=== PATIENT | female | born 1995 | race Caucasian/White ===

== ENCOUNTER 2016-04-29 13:12 | Emergency (ER) | payer OTHER ==
[~2016-04-29] VITALS: Wt 54.4 kg
[~2016-04-29 13:12] MED LIST: AMOXIL500 MG PO; ATARAX25 MG PO; BACTRIM DS 8001 TA1 PO; CIPRO500 MG PO; DIFLUCAN150 MG PO; ELIMITE 5%60 GM T; EMOQUETTE 0.151 TAB PO; FLEXERIL10 MG PO; FLONASE0.05 MG/AC NS; HYDROCODONE BIT1 T11 PO; MIRENA52 MG IU; MOTRIN800 MG PO; NAPROSYN500 MG PO; PREDNICOT20 MG PO; PRENATAL1 TA1 PO; PRENATAL1 TA7 PO; ROBITUSSIN AC 110 ML PO; SUDAFED60 MG PO; ZITHROMAX Z PA250 MG PO; ZITHROMAX250 MG PO; ZOFRAN ODT4 MG SL; ZYRTEC10 MG PO
[2016-04-29] MEDS ORDERED: PRENATAL1 TA3 PO (13:57)
[2016-04-29 14:02] LABS: BILIRUBIN NEGATIVE (NEGATIVE); BLOOD NEGATIVE (NEGATIVE); CLARITY CLOUDY (CLEAR); COLOR YELLOW (YELLOW); GLUCOSE NEGATIVE (NEGATIVE); KETONE TRACE (NEGATIVE); LEUKO ESTERASE 1+ (NEGATIVE); NITRITE NEGATIVE (NEGATIVE); PH 5.5 (5.0-9.0); PROTEIN NEGATIVE (NEGATIVE); SPECIFIC GRAVITY >= 1.030 (1.005-1.030); UROBILINOGEN 0.2 E.U./dl (0.2-1.0)
[2016-04-29 14:17] LABS: BACTERIA 3+; EPITHELIAL CELLS 20-30; MUCOUS 3+; URINE REFLEX COMMENT YES (NO); WBC 31-40 wbc/hpf (0-5)
[2016-04-29] MEDS ORDERED: MACROBID100 M1 PO (14:19)
== END 2016-04-29 14:24 | disposition home or self-care (01) ==
LOC: ED 13:12
PROVIDERS: Nurse Practitioner Family
DX: O23.41 Unspecified infection of urinary tract in pregnancy, first trimester (principal); F17.200 Nicotine dependence, unspecified, uncomplicated; Z3A.01 Less than 8 weeks gestation of pregnancy

== ENCOUNTER 2016-05-01 19:10 | Emergency (ER) | payer OTHER ==
[~2016-05-01] VITALS: Ht 160 cm; Wt 55.8 kg
[~2016-05-01 19:10] MED LIST changes: +MACROBID100 M1 PO; +PRENATAL1 TA3 PO
== END 2016-05-01 20:30 | disposition home or self-care (01) ==
LOC: ED 19:10
DX: O26.891 Other specified pregnancy related conditions, first trimester (principal); R10.9 Unspecified abdominal pain; F17.200 Nicotine dependence, unspecified, uncomplicated; Z79.899 Other long term (current) drug therapy; Z3A.01 Less than 8 weeks gestation of pregnancy

== ENCOUNTER → 2016-08-17 | Outpatient (CLI) | payer OTHER | END | disposition home or self-care (01) | LOC: US 14:00 | DX: Z34.82 Encounter for supervision of other normal pregnancy, second trimester (principal); Z3A.00 Weeks of gestation of pregnancy not specified ==

== ENCOUNTER 2016-09-21 18:14 | Emergency (ER) | payer OTHER ==
[~2016-09-21] VITALS: Ht 157.4 cm; Wt 56.2 kg
[2016-09-21 18:41] LABS: BILIRUBIN NEGATIVE (NEGATIVE); BLOOD NEGATIVE (NEGATIVE); CLARITY SL CLOUDY (CLEAR); COLOR YELLOW (YELLOW); GLUCOSE NEGATIVE (NEGATIVE); KETONE NEGATIVE (NEGATIVE); LEUKO ESTERASE 1+ (NEGATIVE); NITRITE NEGATIVE (NEGATIVE); PROTEIN NEGATIVE (NEGATIVE)
[2016-09-21 18:55] LABS: BASO % 0.3 % (0.0-1.0); EOS # 0.1 10*3/uL (0.0-0.4); EOS % 0.9 % (1.0-4.0); HEMATOCRIT 37.2 % (37.0-47.0); HEMOGLOBIN 12.5 g/dl (12.0-16.0); LYMPH # 2.5 10*3/uL (1.3-4.4); MEAN CELL VOLUME 90.7 fl (81.0-99.0); MEAN CORPUSCULAR HGB 30.5 pg (27.0-31.0); MEAN CORPUSCULAR HGB CONC 33.6 g/dl (33.0-37.0); MEAN PLATELET VOLUME 11.7 fl (9.6-12.3); MONO # 0.4 10*3/uL (0.1-1.0); MONO % 4.4 % (3.0-9.0); NEUT # 5.8 10*3/uL (2.3-7.9); NEUT % 65.9 % (47.0-73.0); PLATELET COUNT AUTOMATED 179 10*3/uL (130-400); RED CELL DISTRI WIDTH 13.5 % (0-14.5); WHITE BLOOD COUNT 8.8 10*3/uL (4.8-10.8)
[2016-09-21 19:00] LABS: BACTERIA 3+; URINE REFLEX COMMENT YES (NO)
[2016-09-21 19:12] LABS: ALBUMIN 3.2 gm/dl (3.1-4.5); ALKALINE PHOSPHATASE 66 U/L (45-117); BILIRUBIN, TOTAL 0.3 mg/dl (0.2-1.0); BUN 4 mg/dl (7-24); CARBON DIOXIDE 23 mmol/L (21-32); CHLORIDE 106 mmol/L (98-107); EST GLOM FILT AFRICAN AMERICAN > 60 ml/min; GLUCOSE 77 mg/dL (65-99); POTASSIUM 3.9 mmol/L (3.5-5.1); SGOT/AST 13 IU/L (3-35); SGPT/ALT 15 U/L (12-78); SODIUM 138 mmol/L (136-145)
[2016-09-21] MEDS ORDERED: MACROBID100 M1 PO (19:42)
== END 2016-09-21 20:33 | disposition home or self-care (01) ==
LOC: ED 18:14
PROVIDERS: Nurse Practitioner Family
DX: O23.42 Unspecified infection of urinary tract in pregnancy, second trimester (principal); F17.200 Nicotine dependence, unspecified, uncomplicated; Z79.899 Other long term (current) drug therapy; Z3A.25 25 weeks gestation of pregnancy

== ENCOUNTER 2017-11-07 00:18 | Emergency (ER) | payer OTHER ==
[~2017-11-07] VITALS: Wt 47.6 kg
[2017-11-07 00:36] LABS: BILIRUBIN NEGATIVE (NEGATIVE); BLOOD NEGATIVE (NEGATIVE); CLARITY CLEAR (CLEAR); COLOR YELLOW (YELLOW); GLUCOSE NEGATIVE (NEGATIVE); KETONE NEGATIVE (NEGATIVE); LEUKO ESTERASE TRACE (NEGATIVE); NITRITE NEGATIVE (NEGATIVE); PH 7.5 (5.0-9.0); UROBILINOGEN 0.2 E.U./dl (0.2-1.0)
[2017-11-07 00:42] LABS: BACTERIA TRACE; EPITHELIAL CELLS 15-20
== END 2017-11-07 01:50 | disposition home or self-care (01) ==
LOC: ED 00:18
PROVIDERS: Emergency Medicine
DX: N39.0 Urinary tract infection, site not specified (principal); R30.0 Dysuria; F17.200 Nicotine dependence, unspecified, uncomplicated; Z79.899 Other long term (current) drug therapy

== ENCOUNTER 2018-03-30 10:51 | Emergency (ER) | payer OTHER ==
[~2018-03-30] VITALS: Wt 46.7 kg
[2018-03-30] MEDS ORDERED: NAPROSYN500 MG PO (11:34)
[2018-03-30] MEDS ORDERED: AMOXICILLIN500 M2 PO (11:34)
== END 2018-03-30 12:00 | disposition home or self-care (01) ==
LOC: ED 10:51
DX: K02.9 Dental caries, unspecified (principal)

== ENCOUNTER 2018-04-02 20:41 | Emergency (ER) | payer OTHER ==
[~2018-04-02] VITALS: Ht 154.9 cm; Wt 46.7 kg
[~2018-04-02 20:41] MED LIST changes: +AMOXICILLIN500 M2 PO
[2018-04-02] MEDS ORDERED: CLINDAMYCIN HC300 MG PO (21:07)
== END 2018-04-02 21:18 | disposition home or self-care (01) ==
LOC: ED 20:41
DX: K04.7 Periapical abscess without sinus (principal); Z79.2 Long term (current) use of antibiotics; Z79.899 Other long term (current) drug therapy

== ENCOUNTER 2018-10-07 07:30 | Emergency (ER) | payer OTHER ==
[~2018-10-07] VITALS: Ht 154.9 cm; Wt 46.7 kg
[~2018-10-07 07:30] MED LIST changes: +CLINDAMYCIN HC300 MG PO
[2018-10-07] MEDS ORDERED: Motrin,Rufen800 MG PO (09:26)
== END 2018-10-07 09:36 | disposition home or self-care (01) ==
LOC: ED 07:30
DX: S43.401A Unspecified sprain of right shoulder joint, initial encounter (principal); Z79.2 Long term (current) use of antibiotics; Z79.899 Other long term (current) drug therapy; X50.0XXA Overexertion from strenuous movement or load, initial encounter; Y93.89 Activity, other specified; Y92.89 Other specified places as the place of occurrence of the external cause; Y99.8 Other external cause status

== ENCOUNTER 2018-11-23 11:43 | Emergency (ER) | payer OTHER ==
[~2018-11-23] VITALS: Wt 47.2 kg
--- NOTE | ~2018-11-23 | EKG ---
[place], [place] ELECTROCARDIOGRAM REPORT NAME: RILEY OLEA UNIT #: [id number] ROOM: DOCTOR: EPIPHANY DRAFT REPORT BIRTHDATE: [birth year] [facility] Test Date: 2018-11-23 Test Time: 12:09:08 Pat Name: RILEY OLEA Department: Room: Gender: F Heel Gummer: : 1995 Requested By: MAICOL LEIJA Order Number: [id number] Reading MD: Sheldon Goel MD Measurements Intervals [place] Rate: 67 P: 49 [place]: 162 QRS: 63 QRSD: 71 T: 34 QT: 384 QTc: 406 Interpretive Statements Sinus rhythm No previous ECG available for comparison Electronically Signed On 11-24-2018 5:37:41 PDT by Sheldon Goel MD CM:EKGRPT:ELECTROCARDIOGRAM REPORT [id number] MAICOL LEIJA EPIPHANY DRAFT REPORT MAICOL LEIJA
[~2018-11-23 11:43] MED LIST changes: +Motrin,Rufen800 MG PO
[2018-11-23 12:01] LABS: BASO % 0.8 % (0.0-1.0); EOS # 0.1 10*3/uL (0.0-0.4); EOS % 2.4 % (1.0-4.0); HEMATOCRIT 41.3 % (37.0-47.0); HEMOGLOBIN 13.8 g/dl (12.0-16.0); LYMPH # 1.9 10*3/uL (1.3-4.4); LYMPH % 38.1 % (27.0-41.0); MEAN CORPUSCULAR HGB 30.4 pg (27.0-31.0); MEAN CORPUSCULAR HGB CONC 33.4 g/dl (33.0-37.0); MEAN PLATELET VOLUME 10.8 fl (9.6-12.3); MONO # 0.3 10*3/uL (0.1-1.0); MONO % 6.5 % (3.0-9.0); NEUT # 2.6 10*3/uL (2.3-7.9); PLATELET COUNT AUTOMATED 219 10*3/uL (130-400); RED BLOOD COUNT 4.54 10*6/uL (4.10-5.10); RED CELL DISTRI WIDTH 11.9 % (0-14.5)
[2018-11-23 12:11] LABS: BILIRUBIN NEGATIVE (NEGATIVE); BLOOD NEGATIVE (NEGATIVE); CLARITY SL CLOUDY (CLEAR); COLOR YELLOW (YELLOW); GLUCOSE NEGATIVE (NEGATIVE); KETONE NEGATIVE (NEGATIVE); LEUKO ESTERASE NEGATIVE (NEGATIVE); NITRITE NEGATIVE (NEGATIVE); PH 5.5 (5.0-9.0); SPECIFIC GRAVITY 1.025 (1.005-1.030); UROBILINOGEN 0.2 E.U./dl (0.2-1.0)
[2018-11-23 12:16] LABS: URINE AMPHETAMINES < 1000 (1000ng/ml); URINE BARBITURATES < 200 (200ng/ml); URINE BENZODIAZEPINES < 200 (200ng/ml); URINE CANNABINOIDS (THC) < 50 (50ng/ml); URINE COCAINE < 300 (300ng/ml); URINE METHADONE < 300 (300ng/ml); URINE OPIATES < 300 (300ng/ml)
[2018-11-23 12:19] LABS: URINE PHENCYCLIDINE < 25 (25ng/ml)
[2018-11-23 12:20] LABS: ALBUMIN 3.9 gm/dl (3.1-4.5); ALKALINE PHOSPHATASE 47 U/L (45-117); BUN 14 mg/dl (7-24); CHLORIDE 108 mmol/L (98-107); CPK 52 U/L (26-192); CREATININE 0.65 mg/dL (0.55-1.02); POTASSIUM 4.3 mmol/L (3.5-5.1); SGOT/AST 10 IU/L (3-35); SGPT/ALT 15 U/L (12-78); SODIUM 141 mmol/L (136-145); TOTAL PROTEIN 6.8 gm/dL (6.4-8.2)
[2018-11-23 12:21] LABS: TROPONIN I < 0.015 ng/ml (<0.045)
[2018-11-23 12:40] LABS: BACTERIA 2+; MUCOUS 3+
[2018-11-23] MEDS ORDERED: Meclizine25 MG PO (14:12)
== END 2018-11-23 14:19 | disposition home or self-care (01) ==
LOC: ED 11:43
PROVIDERS: Nurse Practitioner Family
DX: R42 Dizziness and giddiness (principal); R55 Syncope and collapse

== ENCOUNTER 2019-06-27 14:52 | Emergency (ER) | payer OTHER ==
[~2019-06-27] VITALS: Ht 154.9 cm; Wt 47.2 kg
[~2019-06-27 14:52] MED LIST changes: +Meclizine25 MG PO
[2019-06-27] MEDS ORDERED: NAPROSYN500 MG PO (16:01)
[2019-06-27] MEDS ORDERED: CLINDAMYCIN HC300 MG PO (16:01)
== END 2019-06-27 16:48 | disposition home or self-care (01) ==
LOC: ED 14:52
DX: K08.89 Other specified disorders of teeth and supporting structures (principal); Z79.899 Other long term (current) drug therapy

== ENCOUNTER 2019-08-05 22:53 | Emergency (ER) | payer OTHER ==
[~2019-08-05] VITALS: Ht 154.9 cm; Wt 48.1 kg
[2019-08-06 00:02] LABS: BASO # 0.1 10*3/uL (0.0-0.1); BASO % 0.9 % (0.0-1.0); EOS # 0.2 10*3/uL (0.0-0.4); EOS % 3.3 % (1.0-4.0); HEMATOCRIT 39.3 % (37.0-47.0); LYMPH # 2.4 10*3/uL (1.3-4.4); LYMPH % 37.8 % (27.0-41.0); MEAN CELL VOLUME 89.1 fl (81.0-99.0); MEAN CORPUSCULAR HGB 29.9 pg (27.0-31.0); MEAN CORPUSCULAR HGB CONC 33.6 g/dl (33.0-37.0); MEAN PLATELET VOLUME 10.8 fl (9.6-12.3); MONO # 0.4 10*3/uL (0.1-1.0); MONO % 6.9 % (3.0-9.0); NEUT # 3.3 10*3/uL (2.3-7.9); NEUT % 50.8 % (47.0-73.0); PLATELET COUNT AUTOMATED 250 10*3/uL (130-400); RED BLOOD COUNT 4.41 10*6/uL (4.10-5.10); RED CELL DISTRI WIDTH 12.2 % (0-14.5); WHITE BLOOD COUNT 6.4 10*3/uL (4.8-10.8)
[2019-08-06 00:19] LABS: ALKALINE PHOSPHATASE 48 U/L (45-117); BUN 15 mg/dl (7-24); CHLORIDE 108 mmol/L (98-107); SGOT/AST 10 IU/L (3-35); SGPT/ALT 17 U/L (12-78); SODIUM 141 mmol/L (136-145); TOTAL PROTEIN 7.3 gm/dL (6.4-8.2)
[2019-08-06 00:26] LABS: BILIRUBIN NEGATIVE (NEGATIVE); BLOOD 1+ (NEGATIVE); CLARITY CLEAR (CLEAR); COLOR YELLOW (YELLOW); GLUCOSE NEGATIVE (NEGATIVE); KETONE NEGATIVE (NEGATIVE); LEUKO ESTERASE TRACE (NEGATIVE); NITRITE NEGATIVE (NEGATIVE); PH 6.5 (5.0-9.0); UROBILINOGEN 0.2 E.U./dl (0.2-1.0)
[2019-08-06 00:34] LABS: EPITHELIAL CELLS 31-40
[2019-08-06 00:35] LABS: RBC 0-2 rbc/hpf (0-2)
== END 2019-08-06 04:49 | disposition home or self-care (01) ==
LOC: ED 22:53
PROVIDERS: Physician Assistant
DX: O26.891 Other specified pregnancy related conditions, first trimester (principal); R10.30 Lower abdominal pain, unspecified; Z3A.01 Less than 8 weeks gestation of pregnancy

== ENCOUNTER → 2019-08-09 | Outpatient (CLI) | payer OTHER | LOC: US 09:00 | DX: O20.9 Hemorrhage in early pregnancy, unspecified (principal); Z3A.08 8 weeks gestation of pregnancy ==

== ENCOUNTER → 2019-08-16 | Outpatient (CLI) | payer OTHER | END | disposition home or self-care (01) | LOC: US 13:00 | DX: O02.9 Abnormal product of conception, unspecified (principal); Z3A.08 8 weeks gestation of pregnancy ==

== ENCOUNTER 2019-10-21 22:18 | Emergency (ER) | payer OTHER ==
[~2019-10-21] VITALS: Wt 57.6 kg
[2019-10-21 23:21] LABS: BILIRUBIN NEGATIVE; BLOOD NEGATIVE (NEGATIVE); CLARITY CLEAR (CLEAR); COLOR YELLOW (YELLOW); GLUCOSE NEGATIVE; KETONE NEGATIVE; LEUKO ESTERASE TRACE (NEGATIVE); NITRITE NEGATIVE (NEGATIVE); SPECIFIC GRAVITY 1.025 (1.001-1.030)
[2019-10-21 23:23] LABS: BACTERIA TRACE; EPITHELIAL CELLS 41-50
[2019-10-21 23:48] LABS: BASO # 0.1 10*3/uL (0.0-0.1); BASO % 0.6 % (0.0-1.0); EOS # 0.2 10*3/uL (0.0-0.4); EOS % 2.9 % (1.0-4.0); HEMATOCRIT 38.1 % (37.0-47.0); LYMPH # 2.2 10*3/uL (1.3-4.4); LYMPH % 27.8 % (27.0-41.0); MEAN CELL VOLUME 90.7 fl (81.0-99.0); MEAN CORPUSCULAR HGB 30.2 pg (27.0-31.0); MEAN CORPUSCULAR HGB CONC 33.3 g/dl (33.0-37.0); MEAN PLATELET VOLUME 11.6 fl (9.6-12.3); MONO # 0.5 10*3/uL (0.1-1.0); NEUT # 4.9 10*3/uL (2.3-7.9); NEUT % 62.1 % (47.0-73.0); PLATELET COUNT AUTOMATED 211 10*3/uL (130-400); RED CELL DISTRI WIDTH 12.8 % (0-14.5); WHITE BLOOD COUNT 7.9 10*3/uL (4.8-10.8)
[2019-10-22 00:05] LABS: ALBUMIN 3.2 gm/dl (3.1-4.5); ALKALINE PHOSPHATASE 37 U/L (45-117); BUN 6 mg/dl (7-24); CHLORIDE 112 mmol/L (98-107); CREATININE 0.43 mg/dL (0.55-1.02); POTASSIUM 3.7 mmol/L (3.5-5.1); SGOT/AST 11 IU/L (3-35); SGPT/ALT 17 U/L (12-78); SODIUM 141 mmol/L (136-145); TOTAL PROTEIN 6.6 gm/dL (6.4-8.2)
== END 2019-10-22 01:44 | disposition home or self-care (01) ==
LOC: ED 22:18
PROVIDERS: Nurse Practitioner Family
DX: O26.892 Other specified pregnancy related conditions, second trimester (principal); R10.31 Right lower quadrant pain

== ENCOUNTER → 2019-10-24 | Outpatient (CLI) | payer OTHER | END | disposition home or self-care (01) | LOC: US 12:00 | PROVIDERS: ATTEND Obstetrics & Gynecology | DX: O32.1XX0 Maternal care for breech presentation, not applicable or unspecified (principal); Z3A.17 17 weeks gestation of pregnancy ==

== ENCOUNTER → 2019-11-20 | Outpatient (CLI) | payer OTHER | END | disposition home or self-care (01) | LOC: US 13:00 | PROVIDERS: ATTEND Nurse Practitioner Women's Health | DX: Z34.82 Encounter for supervision of other normal pregnancy, second trimester (principal); Z3A.20 20 weeks gestation of pregnancy ==

== ENCOUNTER → 2019-12-13 | Outpatient (CLI) | payer OTHER | END | disposition home or self-care (01) | LOC: US 12-04 11:30 | PROVIDERS: ATTEND Obstetrics & Gynecology | DX: Z34.82 Encounter for supervision of other normal pregnancy, second trimester (principal); Z3A.24 24 weeks gestation of pregnancy ==

== ENCOUNTER → 2020-01-15 | Outpatient (CLI) | payer OTHER | END | disposition home or self-care (01) | LOC: US 09:30 | PROVIDERS: ATTEND Obstetrics & Gynecology | DX: Z34.83 Encounter for supervision of other normal pregnancy, third trimester (principal); Z3A.28 28 weeks gestation of pregnancy; M79.605 Pain in left leg; M79.604 Pain in right leg ==

== ENCOUNTER → 2020-02-15 | Outpatient (CLI) | payer OTHER | END | disposition home or self-care (01) | LOC: US 14:30 | PROVIDERS: ATTEND Nurse Practitioner Women's Health | DX: Z34.83 Encounter for supervision of other normal pregnancy, third trimester (principal); Z3A.32 32 weeks gestation of pregnancy ==

== ENCOUNTER 2020-03-06 21:01 | Emergency (ER) | payer OTHER ==
[~2020-03-06] VITALS: Ht 154.9 cm; Wt 75.3 kg
[2020-03-06] MEDS ORDERED: AMOXICILLIN500 M2 PO ×2 (21:51)
[2020-06-03] MEDS ORDERED: Motrin,Rufen800 MG PO (10:04)
[2020-06-03] MEDS ORDERED: PERCOCET 5-3251 EACH PO (10:04)
== END 2020-03-06 21:53 | disposition home or self-care (01) ==
LOC: ED 21:01
DX: O99.613 Diseases of the digestive system complicating pregnancy, third trimester (principal); K08.89 Other specified disorders of teeth and supporting structures; Z3A.36 36 weeks gestation of pregnancy

== ENCOUNTER → 2020-03-14 | Outpatient (CLI) | payer OTHER ==
[~2020-03-14] MED LIST changes: +PERCOCET 5-3251 EACH PO
== END | disposition home or self-care (01) ==
LOC: US 14:00
PROVIDERS: ATTEND Obstetrics & Gynecology
DX: Z34.83 Encounter for supervision of other normal pregnancy, third trimester (principal); Z3A.36 36 weeks gestation of pregnancy

== ENCOUNTER → 2020-03-25 | Outpatient (CLI) | payer OTHER | END | disposition home or self-care (01) | LOC: COVID19 14:23 | PROVIDERS: ATTEND Obstetrics & Gynecology | DX: Z20.822 Contact with and (suspected) exposure to COVID-19 (principal); Z34.83 Encounter for supervision of other normal pregnancy, third trimester; Z3A.39 39 weeks gestation of pregnancy ==

== ENCOUNTER → 2020-05-30 | Outpatient (CLI) | payer OTHER | END | disposition home or self-care (01) | LOC: COVID19 13:22 | PROVIDERS: ATTEND Obstetrics & Gynecology | DX: Z11.52 Encounter for screening for COVID-19 (principal) ==

== ENCOUNTER 2021-03-04 09:26 | Emergency (ER) | payer OTHER ==
[~2021-03-04] VITALS: Wt 57.6 kg
[2021-03-04] MEDS ORDERED: Motrin,Rufen800 MG PO (11:43)
== END 2021-03-04 11:47 | disposition home or self-care (01) ==
LOC: ED 09:26
DX: S16.1XXA Strain of muscle, fascia and tendon at neck level, initial encounter (principal); S80.01XA Contusion of right knee, initial encounter; R51.9 Headache, unspecified; R11.0 Nausea; Z79.899 Other long term (current) drug therapy; V89.2XXA Person injured in unspecified motor-vehicle accident, traffic, initial encounter; Y93.89 Activity, other specified; Y92.89 Other specified places as the place of occurrence of the external cause; Y99.8 Other external cause status

== ENCOUNTER 2023-04-17 22:14 | Emergency (ER) | payer OTHER ==
[2023-04-17] MEDS ORDERED: VIBRAMYCIN100 MG PO (22:29)
[2023-04-17] MEDS ORDERED: CEPHALEXIN500 M1 PO (22:29)
[2023-04-17] MEDS ORDERED: CEPHALEXIN 500 MG CAP PO ONE (22:30)
[2023-04-17] MEDS ORDERED: Doxycycline Hyclate 100 MG CAP PO ONE (22:30)
== END 2023-04-17 22:38 | disposition home or self-care (01) ==
LOC: ED 22:14
DX: L02.03 Carbuncle of face (principal); Z79.899 Other long term (current) drug therapy; Z86.14 Personal history of Methicillin resistant Staphylococcus aureus infection

== ENCOUNTER 2023-06-16 15:52 | Emergency (ER) | payer OTHER ==
[~2023-06-16] VITALS: Ht 154.9 cm; Wt 51.7 kg
[~2023-06-16 15:52] MED LIST changes: +CEPHALEXIN500 M1 PO; +VIBRAMYCIN100 MG PO
[2023-06-16] MEDS ORDERED: Acetaminophen/Oxycodone 5 MG/325 MG TABLET PO ONE (16:15)
[2023-06-16] MEDS ORDERED: Sulfamethoxazole/Trimethopri 1 TAB TAB PO ONE (16:15)
[2023-06-16] MEDS ORDERED: SEPTDS PO (16:19)
[2023-06-16] MEDS ORDERED: MELOXICAM15 MG PO (16:19)
== END 2023-06-16 16:47 | disposition home or self-care (01) ==
LOC: ED 15:52
DX: L02.412 Cutaneous abscess of left axilla (principal); Z98.890 Other specified postprocedural states